=== PATIENT | male | born 1985 | race Caucasian/White ===

== ENCOUNTER 2023-07-20 18:18 | Emergency (ER) | payer BC ==
[2023-07-20 19:20] LABS: APPEARANCE,URINE CLEAR; BILIRUBIN,URINE NEGATIVE (NEGATIVE); COLOR,URINE YELLOW; GLUCOSE,URINE 250 mg/dL (NEGATIVE); KETONES,URINE NEGATIVE (NEGATIVE); LEUKOCYTE ESTERASE,URINE NEGATIVE (NEGATIVE); NITRITE,URINE NEGATIVE (NEGATIVE); OCCULT BLOOD,URINE SMALL (NEGATIVE); PROTEIN,URINE NEGATIVE (NEGATIVE); UROBILINOGEN,URINE 0.2 EU/dL (<2.0)
[2023-07-20 19:30] LABS: BACTERIA,URINE FEW (NEGATIVE); EPITHELIAL CELLS,URINE RARE (NONE-FEW); WBC,URINE 0-1 (0-5/HPF)
[2023-07-20 19:36] LABS: BASOPHILS ABSOLUTE AUTO 0.04 K/uL (0.00-0.20); BASOPHILS PERCENT AUTO 0.3 % (0.0-1.0); EOSINOPHILS ABSOLUTE AUTO 0.12 K/uL (0.00-0.45); HEMATOCRIT 41.6 % (42.0-52.0); HEMOGLOBIN 13.7 g/dL (14.0-18.0); IMMATURE GRAN ABSOLUTE AUTO 0.04 K/uL (0.00-0.05); IMMATURE GRAN PERCENT AUTO 0.3 % (0.0-0.4); LYMPHOCYTES ABSOLUTE AUTO 1.89 K/uL (1.00-4.80); LYMPHOCYTES PERCENT AUTO 15.9 % (24.0-44.0); MEAN CORPUSCULAR HEMOGLOBIN 27.5 pg (28.0-32.0); MEAN CORPUSCULAR HGB CONC 32.9 g/dL (32.0-36.0); MEAN CORPUSCULAR VOLUME 83.5 fL (83.0-99.0); MEAN PLATELET VOLUME 10.2 fL (9.4-12.4); MONOCYTES ABSOLUTE AUTO 0.66 K/uL (0.00-0.80); MONOCYTES PERCENT AUTO 5.5 % (0.0-8.0); NEUTROPHILS ABSOLUTE AUTO 9.16 K/uL (1.80-7.70); PLATELET COUNT,PLT 250 K/uL (150-400); RED BLOOD CELL COUNT 4.98 M/uL (4.52-5.90); WHITE BLOOD CELL COUNT,WBC 11.91 K/uL (3.9-11.3)
[2023-07-20 19:56] LABS: ALBUMIN 3.1 g/dL (3.4-5.0); BILIRUBIN TOTAL 0.2 mg/dL (0.2-1.0); CALCIUM 8.9 mg/dL (8.5-10.1); CARBON DIOXIDE,CO2 30.4 mmol/L (21.0-32.0); CREATININE 1.1 mg/dL (0.8-1.3); EST CRCL DRUG DOSING (CG) 121.86 mL/min; POTASSIUM,K 4.4 mmol/L (3.5-5.1); PROTEIN TOTAL,TP 7.9 g/dL (6.4-8.2)
[2023-07-20] MEDS: Ketorolac 30 MG/ML SDV IVPUSH ONE (19:56)
[2023-07-20] MEDS: Ondansetron 4 MG/2 ML SDV IVPUSH ONE (19:56)
[2023-07-20] MEDS: Sodium Chloride 0.9% 1,000 ML IV ONE (19:56)
[2023-07-20 19:58] LABS: A/G RATIO 0.7 (0.9-1.6)
== END 2023-07-20 20:10 | disposition home or self-care (01) ==
LOC: MW.ED 18:18
DX: R10.30 Lower abdominal pain, unspecified (principal); E11.9 Type 2 diabetes mellitus without complications; Z75.8 Other problems related to medical facilities and other health care; Z79.899 Other long term (current) drug therapy; Z79.84 Long term (current) use of oral hypoglycemic drugs
CPT/HCPCS: 36415; 80053; 81001; 85025; 99284